=== PATIENT | male | born 1970 | race Two or more races ===

== ENCOUNTER 2024-10-07 16:03 | Emergency (ER) | payer MEDICAID, SELFPAY ==
[2024-10-07 16:05] VITALS: BMI 31.3
--- NOTE | 2024-10-07 16:35 | EKG_ITS ---
[facility] (Formerly [facility]) Test Date: 2024-10-07 Pat Name: TAZ ALSTON Department: Room: - Gender: Male Manager Neonatal: : 1970 Requested By: Sha Terry (TEVIN) Order Number: [id number] Reading MD: Sha Terry (RUG RENOVATOR) Measurements Intervals [place] Rate: 70 P: 25 SC: 162 QRS: -11 QRSD: 94 T: 34 QT: 370 QTc: 400 Interpretive Statements SINUS RHYTHM Compared to ECG 06/06/2021 11:04:45 Sinus tachycardia no longer present /store/S0/[id number].pdf
[2024-10-07 16:46] VITALS: BP 121/82; PULSE 74; RESP 18; TEMP 37.2; O2SAT 96; BMI 30.4
--- NOTE | 2024-10-07 16:52 | XR_ITS ---
EXAMINATION: XR chest 2V ORDERING PROVIDER: Sha Terry (CLAY CASTER), CLAY CASTER HISTORY: Chest Pain TECHNIQUE: PA and Lateral radiographs of the chest. COMPARISON: 06/20/2021, chest radiographs. FINDINGS: Lungs: Retrocardiac opacities. Pleura: No pneumothorax or pleural effusion. Cardiomediastinal Silhouette: Normal. Soft Tissues/Bones: Normal. IMPRESSION: Left lower lobe pneumonia. Recommend follow-up imaging to resolution.
--- NOTE | 2024-10-07 16:52 | PD.EDRME ---
Rapid Medical Screening Exam RME Arrival date/time: 10/07/24 16:03 54-year-old male presents to the emergency department complaints of sore throat and fatigue Chief Complaint: Shortness of Breath/Dyspnea Vital signs: Vital Signs Temperature 98.9 F 10/07/24 16:46 Pulse Rate 74 10/07/24 16:46 Respiratory Rate 18 10/07/24 16:46 Blood Pressure 121/82 10/07/24 16:46 Pulse Oximetry (%) 96 10/07/24 16:46 Oxygen Delivery Method Room Air 10/07/24 16:46
[2024-10-07 17:35] LABS: Basophils % (Auto) 0 % (0-2.5); Eosinophils # (Auto) 0.1 Thou/mm3 (0.0-0.5); Eosinophils % (Auto) 2 % (0-10); Hemoglobin 13.5 g/dL (13.5-16.0); Immature Granulocytes % (Auto) 0 % (0-0); Immature Granulocytes Auto 0.01 Thou/mm3 (0.00-0.00); Lymphocytes # (Auto) 2.6 Thou/mm3 (1.0-4.8); Lymphocytes % (Auto) 37 % (10-50); Mean Corpuscular HGB Conc 34.6 g/dl (31.0-37.0); Mean Corpuscular Hemoglobin 31.5 pg (25.0-35.0); Mean Corpuscular Volume 91 fL (80-100); Monocytes # (Auto) 0.5 Thou/mm3 (0.0-0.8); Monocytes % (Auto) 7 % (0-12); Neutrophils # (Auto) 3.9 Thou/mm3 (1.8-7.7); Neutrophils % (Auto) 54 % (37-80); Nucleated Red Blood Cell % 0 /100 WBC (0); Platelet Count 245 Thou/mm3 (140-440); RDW Standard Deviation 42.9 fL (35.1-43.9); Red Blood Count 4.29 Miln/mm3 (4.50-5.90); White Blood Count 7.2 Thou/mm3 (3.8-10.6)
[2024-10-07 17:55] LABS: Alanine Aminotransferase 23 U/L (10-49); Albumin, Serum 4.3 gm/dL (3.5-5.0); Albumin/Globulin Ratio 1.5 (1.2-2.2); Alkaline Phosphatase 80 U/L (46-116); Anion Gap 6 (7-16); Aspartate Amino Transferase 23 U/L (0-34); BUN/Creatinine Ratio 19 Ratio (12-20); Bilirubin,Total 0.5 mg/dL (0.3-1.2); Blood Urea Nitrogen 17 mg/dL (9-23); Carbon Dioxide 26.9 mMol/L (20.0-31.0); Chloride 108 mMol/L (98-107); Creatinine (Component) 0.9 mg/dL (0.6-1.3); Estimated Creatinine Clearance 100.2 mL/min (>60); Globulin 2.8 gm/dL (2.3-3.5); Glucose 82 mg/dL (74-106); Osmolality,Calculated 281 (275-295); Potassium 3.9 mMol/L (3.4-5.1); Sodium 141 mMol/L (136-145); Total Protein 7.1 gm/dL (5.7-8.2); Troponin I < 0.002 ng/mL (0.0-0.045); eGFR > 60 See Note
[2024-10-07 18:02] LABS: Strep A Rapid Negative (Negative)
[2024-10-07 18:04] LABS: Amphetamine/Methamp Scrn,U Negative (Negative); Barbiturate Screen,Urine Negative (Negative); Benzodiazepines Screen,Urine Negative (Negative); Benzoylecgonine Screen, Ur Negative (Negative); Fentanyl Screen,Urine Negative (Negative); Opiate Screen,Urine Negative (Negative); THC Screen,Urine Negative (Negative)
[2024-10-07 19:45] VITALS: BP 141/76; PULSE 70; RESP 17; TEMP 36.7; O2SAT 97
[2024-10-07 20:39] LABS: B-Type Natriuretic Peptide 32 pg/mL (0-100)
--- NOTE | 2024-10-07 22:54 | EDNOTE_ITS ---
ED SOB =RME/HPI General Chief Complaint: Shortness of Breath/Dyspnea Stated Complaint: SOB Time Seen by Provider: 10/07/24 20:43 Arrival date/time: 10/07/24 16:03 54 year old male present to emergency room with c/o of cough shortness of breath for 2 weeks. SEVERITY: Symptoms are described as being severe with limitations on activities of daily living CONTEXT: The patient is unable to identify any inciting events. DURATION/TIMING: The symptoms started approximately 2 weeks ASSOCIATED SYMPTOMS: The patient is unable to identify any other associated symptoms. MODIFYING FACTORS: The patient is unable to identify any alleviating or aggravating symptoms. PERTINENT ROS: no fevers, no pleuritic pain, no ripping or tearing sensations, denies any lower extremity edema and no unilateral swelling, no chest pain no nausea,vomiting, diarrhea, no dizziness/headache no rash no loc/syncope episode no abd/back pain REVIEW OF SYSTEMS: See History of Present Illness - with the exception of those mentioned in the history of present illness, all other systems reviewed and reported as negative GENERAL: In general the patient is awake, interactive, in an emergency department gurney. HEAD/EYES/EARS/NOSE/THROAT: normo-cephalic, atraumatic, mucus membranes are moist, anicteric, palpebral conjunctiva is pink, trachea is midline. CARDIOVASCULAR: regular rate and regular rhythm, no murmurs, heart sounds are not distant, strong pulses in all four extremities that are equal and symmetric bilateral upper and lower extremities, normal capillary refill. CHEST/PULMONARY: normal chest rise and fall, good air movement, clear to auscultation bilaterally, normal inspiratory to expiratory ratios without evidence of respiratory distress. NECK: No midline/Paraspinal tenderness, no step off ROM/Strenght intact No Kernig and bruzinski sign. No trauma ABDOMEN: soft, not tender, no masses appreciated BACK: normal range of motion without pain. NEUROLOGICAL: cranio-facial features are symmetric, moves all four extremities equally without obvious limitations or weakness. EXTREMITY: no tenderness to palpation over the long bones or large joints of the bilateral upper and lower extremities, no joint swelling, no joint erythema, no signs of trauma, no unilateral leg swelling and no peripheral edema. SKIN: warm, dry, well-perfused, no jaundice, no rash, no telangiectasias or petechia. PSYCH: calm, cooperative, no evidence of psychosis or agitation RME / HPI RME / HPI Narrative: 10/07/24 16:03 54-year-old male presents to the emergency department complaints of sore throat and fatigue Related Data Previous Rx's ?Medication ?Instructions ?Recorded albuterol sulfate 90 mcg/actuation 1 inh inhalation QI D PRN shortness 10/07/24 aerosol inhaler of breath or wheezing #6.7 g cristobal doxycycline hyclate 100 mg capsule 100 mg PO BID 7 day s #14 caps 10/07/24 Allergies Allergy/AdvReac Type Severity Reaction Status Date / Time No Known Allergies Allergy Verified 10/07/24 16:04 Course Course Course Narrative: Patient presenting with cough and fever.? VS were reviewed and showed .? ?Lung exam noted to have clear .? Obtained and reviewed CXR, which showed + lower lobe pna .? ?At this time, it is felt that the most likely explanation for the patient's symptoms is pneumonia.? I also considered URI, bronchitis, pneumonia, pneumothorax, PE, but this appears less likely considering the data gathered thus far.? Patient was provided doxyc, inhaler? while in the ED.? ? Supportive treatment options were discussed.? Patient to follow up with PCP closely.?? Plan:? Prescribed doxyc, inhaler? Advised Pt on supportive measures, including smoking cessation and avoidance of second-hand smoke, OTC acetaminophen or ibuprofen for fever and body aches, advancement of fluids as tolerated, rest, and frequent hand-washing w/ soap and water. Instructed Pt to monitor for shaking chills or T>100.5degF, persistent cough >7- 10d, hemoptysis, delirium or confusion, cyanosis, and respiratory distress.? Instructed Pt to f/up w/ PCP or ETC should Sx worsen or not improve.? Quality Measures none Orders Category Date Time Status EKG (ED ONLY) *Do not use* NOW Care 10/07/24 16:35 Completed EKG (ED Only) Stat Exams 10/07/24 16:35 Draft XR chest 2V Stat Exams 10/07/24 16:52 Completed BNP [B-Type Natriuretic Peptide] Stat Lab 10/07/24 17:21 Completed CBC Stat Lab 10/07/24 17:21 Completed Comprehensive Metabolic Panel Stat Lab 10/07/24 17:21 Completed Drug Screen,Urine Stat Lab 10/07/24 17:21 Completed Strep A Rapid Stat Lab 10/07/24 16:56 Completed Troponin I Stat Lab 10/07/24 17:21 Completed Albuterol* Inhaler [Proventil Inhaler] Med 10/07/24 23:07 Once 2 puff INH X1 ONE Doxycycline [Vibramycin] Med 10/07/24 23:07 Once 100 mg PO X1 ONE Vital Signs Vital signs: Vital Signs Temperature 98.9 F 10/07/24 16:46 Pulse Rate 74 10/07/24 16:46 Respiratory Rate 18 10/07/24 16:46 Blood Pressure 121/82 10/07/24 16:46 Pulse Oximetry (%) 96 10/07/24 16:46 Oxygen Delivery Method Room Air 10/07/24 16:46 Procedures -ED EKG Interpretation #1: Date of EK10/07/24 Rate: 70 Interpretation: Reviewed by me EKG Impression: Normal sinus rhythm, No acute ST-T changes, No ectopy, No ischemic changes, Normal QRS and Normal intervals Shortness of Breath / Dyspnea Patient data External records reviewed:: [facility] previous records Clinical information provided by:: patient Social determinants that could affect healthcare access:: none Patient has the following chronic illnesses:: as stated in chart How is presenting disease/condition affected by chronic disease/condition?: uneffected by Evaluation data The following diagnostics were reviewed and interpreted by me:: lab results, radiology exam(s) and EKG tracing(s) Lab and/or radiology exams considered but not ordered:: n/a Interpretation Summary: cxr: + pna labs unremarkable bnp/trop wnl Medications / Prescriptions Medications or Prescriptions considered but not ordered:: n/a Medication administrations:: n/a Consultations Consultation(s) initiated? (list below): No Diagnosis Shortness of Breath Differential Diagnosis: acute exacerbation of chronic obstructive airways disease, community acquired pneumonia and asthma with exacerbation Most likely diagnosis given after review of the tests above:: pna Admission Indicated Admission indicated?: not indicated Admission Request Was there a request for admission?: No Disposition Plan Disposition Plan: Discharge Discharge Attestation Discharge Attestation: The patient and all family members were given an opportunity to ask questions and understood the discharge instructions. Discharge instructions specifically effects, indications for sooner follow up or return to the emergency department, and the expected course of current diagnosis. Patient condition: Stable Discharge Plan Plan Patient Disposition: HOME (Self Care) Prescriptions/Referrals Prescriptions/Med Rec: New doxycycline hyclate 100 mg capsule 100 mg PO BID 7 Days Qty: 14 0RF albuterol sulfate 90 mcg/actuation HFA aerosol inhaler 1 inh inhalation QID PRN (Reason: shortness of breath or wheezing) Qty: 6.7 0RF Referrals: No Primary/Family,Physician [Primary Care Provider] - In 1 week Problem List Clinical Impression: Pneumonia Patient/Caregiver Discharge Instructions Education Materials: ED Pneumonia (Adult) Print Language: Frisian Stand Alone Forms: [employer]a Award Info., Patient Portal Info Letter
[2024-10-07] MEDS: ALBUTEROL INH 8 GM 2 PUFF INH (23:22)
[2024-10-07] MEDS: DOXYCYCLINE 100 MG TABLET PO (23:22)
== END 2024-10-07 23:25 | disposition home or self-care (01) ==
PROVIDERS: Nurse Practitioner Primary Care; Physician Assistant; Emergency Provider Emergency Medicine
DX: J18.9 Pneumonia, unspecified organism (principal)
CPT/HCPCS: 36415; 71046; 80053; 80307; 83880; 84484; 85025; 87651; 93005; 99283; A9270